=== PATIENT | male | born 1940 | race Hispanic/Latino ===

== ENCOUNTER 2019-01-12 14:48 | Emergency (ER) | payer SELFPAY ==
[~2019-01-12] VITALS: Ht 172.7 cm; Wt 70.0 kg
[~2019-01-12 14:48] MED LIST: AMLODIPINE5 MG PO; ASPIRIN325 MG PO; CYCLOBENZAPR5 MG PO; ENALAPRIL MALEAT5 MG PO; GLUCOPHAGE500 MG PO; LOPRESSOR 550 MG/TAB PO; LOVASTATIN10 M1 PO; NAPROSYN500 MG PO; NORVASC2.5 MG PO
[2019-01-12 15:03] LABS: GFR 59 ML/MIN (>=60 (CALC)); GFR FOR AFR.AMER. > 60 ML/MIN (>=60 (CALC))
[2019-01-12 15:10] LABS: HEMATOCRIT 45.6 % (39.0-50.0); HEMOGLOBIN 14.8 g/dl (14.0-18.0); IMMATURE GRANULOCYTES 0.2 % (0.0-5.0); MEAN CELL VOLUME 90.5 fL CALC (80.0-100.0); MEAN CORPUSCULAR HGB 29.4 pG CALC (26.0-32.0); MEAN CORPUSCULAR HGB CONC 32.5 g/L CALC (32.0-36.0); NEUT# 5.23 thou/uL (1.82-7.42); RED BLOOD COUNT 5.04 mill/uL (4.70-6.10); RED CELL DISTRI WIDTH 13.9 % (11.5-15.5)
[2019-01-12 15:28] LABS: ALBUMIN 4.9 g/dL (3.2-5.0); ALKALINE PHOSPHATASE 107 u/l (38-126); ANION GAP 19 (6-22 (CALC)); BILIRUBIN, TOTAL 0.7 mg/dL (0.0-1.4); BUN 15 mg/dL (8-23); BUN/CREATININE RATIO 14 (12-20 (CALC)); CARBON DIOXIDE 24 mmol/l (22-30); CHLORIDE 105 mmol/l (95-108); CREATININE 1.1 mg/dL (0.7-1.3); GFR > 60 ML/MIN (>=60 (CALC)); GFR FOR AFR.AMER. > 60 ML/MIN (>=60 (CALC)); SGOT/AST 20 u/l (19-48); SODIUM 144 mmol/l (137-146); TOTAL PROTEIN 8.1 g/dL (6.3-8.2)
[2019-01-12 15:32] LABS: POTASSIUM 3.9 mmol/l (3.5-5.1)
[2019-01-12 17:02] VITALS: BP 160/68
== END 2019-01-12 17:01 | disposition left against medical advice (07) | DRG 66 ==
LOC: ED 14:48
PROVIDERS: Family Medicine
DX: I63.9 Cerebral infarction, unspecified (principal); R47.81 Slurred speech; R41.82 Altered mental status, unspecified; I65.22 Occlusion and stenosis of left carotid artery; R29.703 NIHSS score 3; I69.393 Ataxia following cerebral infarction; R94.31 Abnormal electrocardiogram [ECG] [EKG]; Z91.19 Patient's noncompliance with other medical treatment and regimen; F17.200 Nicotine dependence, unspecified, uncomplicated
CPT/HCPCS: Q9967

== ENCOUNTER 2019-01-30 16:05 | Emergency (ER) | payer SELFPAY ==
[~2019-01-30] VITALS: Ht 172.7 cm; Wt 81.0 kg
[2019-01-30 18:05] LABS: URINE BILIRUBIN - DIPSTICK NEGATIVE (NEGATIVE); URINE BLOOD DIPSTICK TRACE-INTACT (NEGATIVE); URINE COLOR YELLOW; URINE GLUCOSE - DIPSTICK 500 mg/dL (NEGATIVE); URINE KETONE TRACE mg/dL (NEGATIVE); URINE LEUK ESTERASE NEGATIVE (NEGATIVE); URINE NITRITE - DIPSTICK NEGATIVE (Negative); URINE PROTEIN - DIPSTICK 30 mg/dL (NEG-TRACE); URINE SPECIFIC GRAVITY >=1.030
[2019-01-30 18:19] LABS: URINE MUCUS MODERATE hpf (NONE-FEW); URINE SQUAMOUS EPITHELIAL CELL FEW EPI/hpf (0-FEW)
[2019-01-30] MEDS ORDERED: KEFLEX500 M1 PO (19:08)
[2019-01-30] MEDS ORDERED: TAMSULOSIN0.4 MG PO (19:08)
[2019-01-30 20:33] VITALS: BP 148/59
== END 2019-01-30 20:33 | disposition home or self-care (01) | DRG 690 ==
LOC: ED 16:05
DX: N30.90 Cystitis, unspecified without hematuria (principal); E11.9 Type 2 diabetes mellitus without complications; I10 Essential (primary) hypertension; F17.210 Nicotine dependence, cigarettes, uncomplicated

== ENCOUNTER 2019-08-01 17:52 | Emergency (ER) | payer SELFPAY ==
[~2019-08-01] VITALS: Ht 172.7 cm; Wt 68.0 kg
[~2019-08-01 17:52] MED LIST changes: +KEFLEX500 M1 PO; +TAMSULOSIN0.4 MG PO
[2019-08-01 18:44] LABS: IMMATURE GRANULOCYTES 0.1 % (0.0-5.0); MEAN CELL VOLUME 92.2 fL CALC (80.0-100.0); MEAN CORPUSCULAR HGB 29.8 pG CALC (26.0-32.0); MEAN CORPUSCULAR HGB CONC 32.3 g/L CALC (32.0-36.0); NEUT# 3.84 thou/uL (1.82-7.42); RED BLOOD COUNT 4.23 mill/uL (4.70-6.10); RED CELL DISTRI WIDTH 13.9 % (11.5-15.5)
[2019-08-01 18:48] LABS: HEMOGLOBIN 12.6 g/dl (14.0-18.0)
[2019-08-01 18:58] LABS: ALBUMIN 4.2 g/dL (3.2-5.0); ALKALINE PHOSPHATASE 80 u/l (38-126); BUN 17 mg/dL (8-23); BUN/CREATININE RATIO 20 (12-20 (CALC)); CHLORIDE 104 mmol/l (95-108); CREATININE 0.9 mg/dL (0.7-1.3); GFR > 60 ML/MIN (>=60 (CALC)); GFR FOR AFR.AMER. > 60 ML/MIN (>=60 (CALC)); SGOT/AST 19 u/l (19-48); SODIUM 142 mmol/l (137-146); TOTAL PROTEIN 7.1 g/dL (6.3-8.2)
[2019-08-01 19:01] LABS: ANION GAP 13 (6-22 (CALC)); BILIRUBIN, TOTAL 0.4 mg/dL (0.0-1.4); CARBON DIOXIDE 29 mmol/l (22-30)
[2019-08-01 19:13] LABS: URINE BLOOD DIPSTICK NEGATIVE (NEGATIVE); URINE COLOR YELLOW; URINE GLUCOSE - DIPSTICK NEGATIVE (NEGATIVE); URINE KETONE NEGATIVE (NEGATIVE); URINE LEUK ESTERASE NEGATIVE (NEGATIVE); URINE NITRITE - DIPSTICK NEGATIVE (Negative); URINE PH 5.5 (4.5-8.0); URINE PROTEIN - DIPSTICK NEGATIVE (NEG-TRACE); URINE SPECIFIC GRAVITY >=1.030; URINE UROBILINOGEN - DIPSTICK 0.2 E.U./dL (0.2)
[2019-08-01 19:14] LABS: URINE BILIRUBIN - DIPSTICK NEGATIVE (NEGATIVE)
[2019-08-01 19:29] LABS: TSH, 3RD GENERATION 1.19 uIU/mL (0.47 - 4.68)
[2019-08-01 20:08] VITALS: BP 157/52
== END 2019-08-01 20:25 | disposition home or self-care (01) | DRG 948 ==
LOC: ED 17:52
PROVIDERS: Family Medicine
DX: R53.1 Weakness (principal); I10 Essential (primary) hypertension; E11.9 Type 2 diabetes mellitus without complications; Z91.14 Patient's other noncompliance with medication regimen; Z79.84 Long term (current) use of oral hypoglycemic drugs; Z60.2 Problems related to living alone

== ENCOUNTER 2020-07-12 16:10 | Inpatient (IN) | payer MEDICARE ==
[~2020-07-12] VITALS: Ht 172.7 cm; Wt 52.8 kg
--- NOTE | 2020-07-12 16:10 | NUR ---
PATIENT DIRECTLY TO ROOM FOR BEDSIDE TRIAGE.
[2020-07-12 17:00] LABS: HEMATOCRIT 36.2 % (39.0-50.0); HEMOGLOBIN 11.4 g/dl (14.0-18.0); IMMATURE GRANULOCYTES 0.1 % (0.0-5.0); MEAN CORPUSCULAR HGB 30.2 pG CALC (26.0-32.0); MEAN CORPUSCULAR HGB CONC 31.5 g/dL CAL (32.0-36.0); NEUT# 4.8 thou/uL (1.82-7.42); RED BLOOD COUNT 3.77 mill/uL (4.70-6.10); RED CELL DISTRI WIDTH 14.2 % (11.5-15.5)
--- NOTE | 2020-07-12 17:08 | NUR ---
PT UNABLE TO VERIFY ANY INFORMATION ABOUT MEDICATIONS , FRIEND THAT DROPPED HIM OFF BEFORE SHE LEFT STATED THAT IF HE IS ON ANY MEDICATIONS HE HASNT BEEN TAKING THEM FOR THE TWO MONTHS THAT SHE HAS BEEN TAKING CARE OF HIM.
[2020-07-12 17:19] LABS: ALBUMIN 3.4 g/dL (3.2-5.0); ALKALINE PHOSPHATASE 93 u/l (38-126); BILIRUBIN, TOTAL 0.4 mg/dL (0.0-1.4); BUN 23 mg/dL (8-23); BUN/CREATININE RATIO 26 (12-20 (CALC)); CHLORIDE 102 mmol/l (95-108); CREATININE 0.9 mg/dL (0.7-1.3); ETHYL ALCOHOL 0 mg/dl (0-30); GFR > 60 ML/MIN (>=60 (CALC)); GFR FOR AFR.AMER. > 60 ML/MIN (>=60 (CALC)); SGOT/AST 32 u/l (19-48); SODIUM 143 mmol/l (137-146); TOTAL PROTEIN 6.3 g/dL (6.3-8.2)
[2020-07-12 17:23] LABS: ANION GAP 7 (6-22 (CALC)); CARBON DIOXIDE 37 mmol/l (22-30); INTERNATIONAL NORMALIZED RATIO 1.1 RATIO (0.7-1.3); POTASSIUM 2.5 mmol/l (3.5-5.1); PROTHROMBIN TIME 10.7 SECONDS (9.0-12.5)
--- NOTE | 2020-07-12 17:59 | NUR ---
PT RESTING QUIETLY ON STRETCHER, EYES CLOSED, WARM BLANKET GIVEN, PT DOES NOT APPEAR TO BE IN ANY DISTRESS AT THIS TIME. HEART RATE REMAINS IN THE MID 40'S SINUS PAZ.
--- NOTE | 2020-07-12 18:55 | NUR ---
RECEIVED HAND OFF REPORT FROM SIOMARA
--- NOTE | 2020-07-12 19:04 | NUR ---
PATIENT AWAKE AND ALERT, ORIENTED X1, NO C/O PAIN, NO S/S OF DISTRESS NOTED, RESPIRATIONS EVEN ANDUNLBORED ON ROOM AIR, AWAITING INPATIENT BED ASSIGNMENT.
[2020-07-12 19:10] LABS: URINE BLOOD DIPSTICK MODERATE (NEGATIVE); URINE COLOR YELLOW; URINE GLUCOSE - DIPSTICK NEGATIVE (NEGATIVE); URINE KETONE NEGATIVE (NEGATIVE); URINE LEUK ESTERASE NEGATIVE (NEGATIVE); URINE NITRITE - DIPSTICK NEGATIVE (Negative); URINE PH 5.5 (4.5-8.0); URINE PROTEIN - DIPSTICK TRACE mg/dL (NEG-TRACE); URINE SPECIFIC GRAVITY 1.025; URINE UROBILINOGEN - DIPSTICK 0.2 E.U./dL (0.2)
[2020-07-12 19:13] LABS: URINE BACTERIA MODERATE hpf; URINE BILIRUBIN - DIPSTICK NEGATIVE (NEGATIVE); URINE SQUAMOUS EPITHELIAL CELL FEW EPI/hpf (0-FEW)
--- NOTE | 2020-07-12 19:34 | NUR ---
REPORT GIVEN TO FLOOR
--- NOTE | 2020-07-12 20:09 | NUR ---
PATIENT RESTING QUIETLY, AWAITING TRANSFER TO INPATIENT TREATMENT ROOM FOR STABLE BLOOD PRESSURE.
--- NOTE | 2020-07-12 21:04 | NUR ---
RESTING QUIETLY, NO C/O PAIN OR DISCOMFORT, NO S/S OF DISTRESS NOTED, RESPIRATIONS EVEN AND UNLABORED, AWAITING TRANSFER TO INPATIENT TREATMENT ROOM ONCE BLOOD PRESSURE IS DECREASED.
--- NOTE | 2020-07-12 23:26 | NUR ---
PT ARRIVED TO FLOOR VIA STRETCHER ACCOMPAINED BY ER STAFF. ALERT AND ORIENTED X3 PT UNAWARE OF WHY HE IS IN HOSPITAL. PT TRANSFERED FROM STRETCHER TO BED BY STAFF. PT SPEAKS BULGARIAN WITH MINIMAL LATVIAN. ASSESSMENT TRANSLATED BY VANESSA CARRILLO. LEFT SIDED WEAKNESS NOTED, HX OF CVA. MAJOR VESSEL DISTENTION NOTED TO NECK BILATERALLY. PT DENIES LIVING WITH FRIENDS WHO DROPPED HIM OFF. MULTIPLE WOUNDS NOTED AND DOCUMENTED AT THIS TIME. CERAMIC DESIGNER IN PLACE. IV SITE APPEARS HEALTHY. PT ORIENTED TO ROOM AND CALL LIGHT SYSTEM. DISCUSSED POC. PT REQUEST FOOD, WILL PROVIDED. CALL LIGHT WITHIN REACH. WILL CONTINUE TO MONITOR.
[2020-07-12 23:30] VITALS: BP 178/88
--- NOTE | 2020-07-12 23:32 | NUR ---
PATIENT TRANSPORTED TO INPATIENT TREATMENT ROOM 271
[2020-07-13 01:38] VITALS: BP 158/58
--- NOTE | 2020-07-13 03:30 | NUR ---
PT INCONTINENT OF BOWEL AND BLADDER. COMPLETE BED BATH AND LINEN CHANGE PROVIDED. PT TOLERATED WELL. BIOLOGICAL CHEMIST REPLACED. IV SITE APPEARS HEALTHY. REPOSITIONED FOR COMFORT. CALL LIGHT WITHIN REACH. BED ALARM FOR SAFETY. WILL CONTINUE TO MONITOR.
[2020-07-13 04:26] VITALS: BP 169/52
[2020-07-13 05:16] LABS: HEMATOCRIT 35.4 % (39.0-50.0); HEMOGLOBIN 11.3 g/dl (14.0-18.0); IMMATURE GRANULOCYTES 0.5 % (0.0-5.0); MEAN CELL VOLUME 95.4 fL CALC (80.0-100.0); MEAN CORPUSCULAR HGB 30.5 pG CALC (26.0-32.0); MEAN CORPUSCULAR HGB CONC 31.9 g/dL CAL (32.0-36.0); NEUT# 6.05 thou/uL (1.82-7.42); RED BLOOD COUNT 3.71 mill/uL (4.70-6.10); RED CELL DISTRI WIDTH 14.2 % (11.5-15.5)
[2020-07-13 05:38] LABS: ANION GAP 8 (6-22 (CALC)); BUN 18 mg/dL (8-23); BUN/CREATININE RATIO 26 (12-20 (CALC)); CARBON DIOXIDE 35 mmol/l (22-30); CHLORIDE 100 mmol/l (95-108); CREATININE 0.7 mg/dL (0.7-1.3); GFR > 60 ML/MIN (>=60 (CALC)); GFR FOR AFR.AMER. > 60 ML/MIN (>=60 (CALC)); POTASSIUM 2.9 mmol/l (3.5-5.1); SODIUM 139 mmol/l (137-146)
--- NOTE | 2020-07-13 06:09 | NUR ---
BP REMAINS ELEVATED. MANUAL 188/74. RN ON SHIFT TO ADMINISTER PRN APRESOLINE.
--- NOTE | 2020-07-13 07:39 | NUR ---
PT note Patient is screened for rehab intervention and it is felt he would benefit from PT/OT and ST interventions if medical agrees
[2020-07-13 07:41] VITALS: BP 144/53
--- NOTE | 2020-07-13 07:41 | NUR ---
PT LAYING IN BED. A&O TO SELF. PT STATES HE IS AT "HOME" AND CURRENT TIME IS DECEMBER 2011". REORIENTED PT TO PLACE AND TIME. MULTIPLE WOUNDS SEEN WITH DIFFERENT HEALING STAGES, SEE CHART FOR PHOTOS. PT DENIES ANY PAIN AT THIS TIME. STATES THAT HE LIVES ALONE BUT SOMEONE HELPS FEED HIM. LT SIDED WEAKNESS NOTICED. PT ABLE TO FOLLOW COMMANDS. WHEEZING HEARD UPON AUSCULTATION. NO OTHER NEEDS AT THIS TIME. BED ALARM PLACED FOR SAFETY PRECAUTIONS. DISCUSSED POC REINFORCEMENT NEEDED. CALL LIGHT IN REACH. CONTINUE TO MONITOR.
--- NOTE | 2020-07-13 08:24 | NUR ---
DR ALEXANDER AND ARA AT BEDSIDE DISCUSSING POC
--- NOTE | 2020-07-13 09:35 | NUR ---
PHYSICAL THERAPY AT BEDSIDE COMPLETING BEDSIDE EVAL
[2020-07-13 11:07] VITALS: BP 144/57
--- NOTE | 2020-07-13 11:17 | NUR ---
Called patient phone number, and friend answered. Per friend, patient has not been taking any medication sice October 2018. Friend does not know if patient has any medication allergies.
--- NOTE | 2020-07-13 11:26 | NUR ---
VERIFIED COMPATIBILITY WITH POTASSIUM CHLORIDE AND ROCEPHIN PER SRINI BOTH ARE Y SITE COMPATIBLE
--- NOTE | 2020-07-13 11:53 | NUR ---
PT TAKEN TO CT VIA STRETCHER BY MELISA CARRILLO
--- NOTE | 2020-07-13 14:10 | NUR ---
DOUBLE LUMEN PICC TO URIEL. BOTH LUMENS FLUSHED AND MINOO BACK BLOOD WITH EASE. PICC PROTOCOL SENT TO PHARMACY. NS @ 75 INITIATED. CALL LIGHT IN REACH. CONTINUE TO MONITOR.
[2020-07-13 15:17] VITALS: BP 156/54
--- NOTE | 2020-07-13 16:30 | NUR ---
ENGRAVING PLATE MAKER JENNIFER AT BEDSIDE
--- NOTE | 2020-07-13 18:26 | NUR ---
ZINC OXIDE APPLIED TO BUTTOCKS, SKIN PREP TO WOUNDS APPLIED PER DR MONROY'S ORDERS. PT TOLERATED WELL. PER SHABNAM IN THE ED, PT RAN A 6 SECOND VTACH DURING OUR CHANGES IN POSITION FOR THE APPLICATION OF CREAM. STIPS TO BE REC AND MD TO BE NOTIFIED
--- NOTE | 2020-07-13 18:33 | NUR ---
DR ROMERO NOTIFIED OF PTS 6 EPISODE OF VTACH. PT CURRENTLY ASYMPTOMATIC. WILL CONTINUE TO MONITOR.
[2020-07-13 19:00] VITALS: BP 165/66
--- NOTE | 2020-07-13 19:26 | NUR ---
PT MEDICATED FOR ELEVATED BP. NO S/O DISTRESS AT THIS TIME. CALL LIGHT AT BEDSIDE.
--- NOTE | 2020-07-13 20:34 | NUR ---
PT MEDICATED ORDERS PROVIDE AND PROVIDED W/SNACK. ASSISTED PT EATING PUDDING AND COFFEE PER REQUEST. PT ALSO ABLE TO SWALLOW PILL W/OUT DIFFICULTY, BUT WOULD NOT FEED HIMSELF. BARBER SHOP MANAGER ASSISTED.
--- NOTE | 2020-07-13 21:20 | NUR ---
PT CALLING OUT, ASKING FOR REPOSITIONING IN BED. PT CLEANED OF URINE INCONTINENCE AND REPOSITIONED IN BED FOR COMFORT. HEEL PROTECTORS REPLACED. DRINK PROVIDED AT THIS TIME. PT DRINKING COFFEE PROVIDED WITH ASSISTANCE DRINKING.
--- NOTE | 2020-07-13 21:42 | NUR ---
PT CALLING OUT, NOT USING CALL LIGHT. PT ASKING FOR FOOD. ASSISTED PT EATING CRACKERS, PT IS ABLE TO USE RIGHT HAND LIMITED TO HOLD AND EAT CRACKERS, SEEMS TO HAVE DIFFICULTY GRABBING AND HOLDING CUPS/ASSISTANCE PROVIDED. BED ALARM IS ON.
--- NOTE | 2020-07-13 23:29 | NUR ---
METAL FABRICATION SUPERVISOR TALKED WITH PT OVER THE PHONE DUE TO PT YELLING OUT. PT ASKED TO HAVE HIS BED CHANGED. BEDDING IS CLEAN AND DRY, PREVIOUSLY CHANGED NOT LONG AGO. PT HAS BRIEF ON AND IS SLIGHTLY WET WITH YELLOW URINE. PT CLEANED OF INCONTINENT URINE AND CONDOM CATH PLACED. WILL CONTINUE TO MONITOR FOR NEEDS.
--- NOTE | 2020-07-13 23:56 | NUR ---
PT STILL YELLING OUT, PT MEDICATED FOR ANXIOUSNESS/AGITATION AT THIS TIME AND ASSISTED DRINKING ENSURE AND EATING SNACK.
[2020-07-14] VITALS (8 sets, daily range): BP systolic 155–175; BP diastolic 60–72
--- NOTE | 2020-07-14 00:19 | NUR ---
PT YELLING OUT ASKING FOR COFFEE. BED ALARM IS ON AT THIS TIME.
--- NOTE | 2020-07-14 04:15 | NUR ---
Pt cleaned of incontinent urine and stool. condom cath was draining clear yellow urine, but has come off for maria-care. Bedding changed again at this time. Pt medicated for elevated bp and blood drawn for labs. Picc line flushed patent and hep-locked. Ivf running to 2nd lumen of PICC. No s/o distress noted. Bed in lowest position, bed alarm on and call light w/in reach.
[2020-07-14 05:38] LABS: HEMATOCRIT 36.6 % (39.0-50.0); HEMOGLOBIN 11.8 g/dl (14.0-18.0); MEAN CELL VOLUME 95.1 fL CALC (80.0-100.0); MEAN CORPUSCULAR HGB 30.6 pG CALC (26.0-32.0); MEAN CORPUSCULAR HGB CONC 32.2 g/dL CAL (32.0-36.0); RED BLOOD COUNT 3.85 mill/uL (4.70-6.10); RED CELL DISTRI WIDTH 14.2 % (11.5-15.5)
[2020-07-14 06:01] LABS: ANION GAP 10 (6-22 (CALC)); BUN 20 mg/dL (8-23); BUN/CREATININE RATIO 29 (12-20 (CALC)); CARBON DIOXIDE 30 mmol/l (22-30); CHLORIDE 101 mmol/l (95-108); CREATININE 0.7 mg/dL (0.7-1.3); GFR > 60 ML/MIN (>=60 (CALC)); GFR FOR AFR.AMER. > 60 ML/MIN (>=60 (CALC)); MAGNESIUM 1.7 mg/dL (1.6-2.3); SODIUM 137 mmol/l (137-146)
[2020-07-14 06:02] LABS: POTASSIUM 3.8 mmol/l (3.5-5.1)
--- NOTE | 2020-07-14 06:23 | NUR ---
PT ACCU-CHECK OBTAINED. CONDOM-CATH DRAINING TO GRAVITY CLEAR YELLOW URINE. NO S/O DISTRESS NOTED.
--- NOTE | 2020-07-14 08:00 | NUR ---
FEED PT AND PT EAT 100%. PO FLUIDS PROVIDED. ASSESSMENT DONE. PT IS A&O X1. PT DENIES PAIN AT THIS TIME. IVF INFUSING WELL. RU PICC IN PLACE. TELE IN PLACE. SKIN PREP APPLIED TO RIGHT WRIST AND LEFT KNEE PER ORDER. LUNGS SOUND WITH WHEEZES. CONDOM CATH PATENT WITH KENNY URINE. PT DENIES ANY OTHER NEEDS AT THIS TIME. CALL LIGHT IN REACH AND BED ALARM IN PLACE.
--- NOTE | 2020-07-14 08:59 | NUR ---
RACHELLE SPANGLER IN ROOM TO ASSESS PT.
--- NOTE | 2020-07-14 12:00 | NUR ---
CHEMICAL PROCESSING SUPERVISOR IN ROOM TO FEED PT LUNCH. NO S/S OF DSITRESS NOTED . CALL LIGHT IN REACH. BED ALARM IN PLACE.
--- NOTE | 2020-07-14 15:54 | NUR ---
PT INCONTINENT OF YELLOW URINE IN PAD. JOELLEN CARE DONE. PT DENIES ANY OTHER NEEDS AT THIS TIME. CALL LIGHT IN REACH. BED ALARM IN PLACE.
--- NOTE | 2020-07-14 16:48 | NUR ---
MEDICATED PT WITH APRESOLINE IV FOR BP 163/71. NO S/S OF DISTRESS NOTED. BED ALARM IN PLACE.
--- NOTE | 2020-07-14 20:30 | NUR ---
PT BP ELEVATED, PHYSICIAN NOTIFIED AND NEW ORDERS RECEIVED AT THIS TIME.
--- NOTE | 2020-07-14 21:04 | NUR ---
PT MEDICATED ORDERS PROVIDE FOR ELEVATED BP.
--- NOTE | 2020-07-14 23:50 | NUR ---
PT CLEANED OF INCONTINENT URINE AND STOOL. HEEL PROTECTORS PLACED BACK ON, PT KEEPS REMOVING THEM. PT WILL NOT KEEP FEET ELEVATED TO FLOAT. ASSISTED PT DRINK AND PROVIDED SNACK. ASSISTED PT FIND TV SHOW, LIGHTS ARE OFF. CALL LIGHT W/IN REACH AND BED ALARM ON.
[2020-07-15] VITALS: BP 168/76
--- NOTE | 2020-07-15 00:12 | NUR ---
PT MEDICATED FOR ELEVATED BP ORDERS PROVIDE. NO DISTRESS NOTED AT THIS TIME. PT IS RESTING WITH EYES CLOSED.
[2020-07-15 04:00] VITALS: BP 167/77
--- NOTE | 2020-07-15 04:44 | NUR ---
BLOOD DRAWN FOR LABS, V/S ASSESSED AT THIS TIME AND PT CLEANED OF INCONTINENT URINE. PT TOLERATED WELL. PICC TO URIEL PATENT AND HEP LOCKED. IVF RUNNING KVO TO 2ND LUMEN
[2020-07-15 06:01] LABS: ANION GAP 9 (6-22 (CALC)); BUN 21 mg/dL (8-23); BUN/CREATININE RATIO 28 (12-20 (CALC)); CARBON DIOXIDE 31 mmol/l (22-30); CHLORIDE 102 mmol/l (95-108); CREATININE 0.8 mg/dL (0.7-1.3); GFR > 60 ML/MIN (>=60 (CALC)); GFR FOR AFR.AMER. > 60 ML/MIN (>=60 (CALC)); POTASSIUM 4.2 mmol/l (3.5-5.1); SODIUM 136 mmol/l (137-146)
[2020-07-15 07:50] VITALS: BP 144/48
--- NOTE | 2020-07-15 08:02 | NUR ---
SHIFT CHANGE REPORT, AWAKE AND ALERT IN HIGH FOWLERS POSITION, TELE MONITOR IN PLACE, IVF INFUSING, CALL BECERRA IN REACH, WILL CONTINUE TO MONITOR.
[2020-07-15] MEDS ORDERED: ADLT ASA LOW81 MG PO (10:04)
[2020-07-15] MEDS ORDERED: POLYETHYLENE GL17 GM PO (10:04)
[2020-07-15] MEDS ORDERED: LISINOPRIL20 M1 PO (10:04)
[2020-07-15] MEDS ORDERED: ATORVASTATIN CA40 MG PO (10:04)
[2020-07-15 10:40] VITALS: BP 143/65
[2020-07-15] MEDS ORDERED: KEFLEX500 M1 PO (11:02)
--- NOTE | 2020-07-15 12:20 | NUR ---
IN BED IN HIGH FOWLERS POSITION, HEALTHY APPETITE, INFORMED OF D/C PLANS TO REHAB ADN STATED UNDERSTANDING. FRIEND SHASHI NOTIFIED OF PLANS AND EXPRESS GRATITUDE FOR PLAN STATING HE HAS NOT FAMILY AND SHE WOULD GO AND ASSIST HIM FROM TIME TO TIME BUT SHE IS NOT RELATED TO HIM.
--- NOTE | 2020-07-15 14:04 | NUR ---
REPORT GIVEN TO JESSICA, STAFF HERE TO RECEIVE PT AT THIS TIME, TRANSFERRED TO W/C WITH MAX ASSIST OR 4 THEN TRANSPORTED TO REHAB BY REHAB STAFF
--- NOTE | 2020-07-15 14:08 | NUR ---
Discharge instructions given. Patient verbalizes understanding of same. Discharged in stable condition via Wheelchair to [facility] with *Other. All belongings sent with pt.
== END 2020-07-15 14:03 | DRG 640 ==
LOC: ED 16:10 → ED-I 17:09 → ED 17:09 → ED-I 18:16 → ED 18:23 → MS2 18:24
PROVIDERS: Nurse Practitioner; Student in an Organized Health Care Education/Training Program; ADMIT Internal Medicine; ATTEND Internal Medicine
PROC: 3E02340 Introduction of Influenza Vaccine into Muscle, Percutaneous Approach (ICD-10-PCS; principal; 2020-07-13)
PROC: 3E0234Z Introduction of Serum, Toxoid and Vaccine into Muscle, Percutaneous Approach (ICD-10-PCS; 2020-07-13)
PROC: 02HV33Z Insertion of Infusion Device into Superior Vena Cava, Percutaneous Approach (ICD-10-PCS; 2020-07-13)
PROC: B518ZZA Fluoroscopy of Superior Vena Cava, Guidance (ICD-10-PCS; 2020-07-13)
DX: E87.6 Hypokalemia (principal); E43 Unspecified severe protein-calorie malnutrition; I69.954 Hemiplegia and hemiparesis following unspecified cerebrovascular disease affecting left non-dominant side; Z68.1 Body mass index [BMI] 19.9 or less, adult; R64 Cachexia; N39.0 Urinary tract infection, site not specified; L97.829 Non-pressure chronic ulcer of other part of left lower leg with unspecified severity; E86.0 Dehydration; E11.9 Type 2 diabetes mellitus without complications; I10 Essential (primary) hypertension; I25.10 Atherosclerotic heart disease of native coronary artery without angina pectoris; E78.5 Hyperlipidemia, unspecified; R62.7 Adult failure to thrive; R32 Unspecified urinary incontinence; R15.9 Full incontinence of feces; M24.59 Contracture, other specified joint; I70.245 Atherosclerosis of native arteries of left leg with ulceration of other part of foot; I70.248 Atherosclerosis of native arteries of left leg with ulceration of other part of lower leg; L97.529 Non-pressure chronic ulcer of other part of left foot with unspecified severity; L97.519 Non-pressure chronic ulcer of other part of right foot with unspecified severity; L98.499 Non-pressure chronic ulcer of skin of other sites with unspecified severity; S31.829A Unspecified open wound of left buttock, initial encounter; S31.819A Unspecified open wound of right buttock, initial encounter; B96.20 Unspecified Escherichia coli [E. coli] as the cause of diseases classified elsewhere; X58.XXXA Exposure to other specified factors, initial encounter; Z23 Encounter for immunization; Z91.81 History of falling; Z79.84 Long term (current) use of oral hypoglycemic drugs; Z20.828 Contact with and (suspected) exposure to other viral communicable diseases
CPT/HCPCS: J1650

== ENCOUNTER 2021-06-27 23:52 | Observation (INO) | payer MEDICARE ==
[~2021-06-27] VITALS: Ht 172.7 cm; Wt 58.0 kg
[~2021-06-27 23:52] MED LIST changes: +ADLT ASA LOW81 MG PO; +ATORVASTATIN CA40 MG PO; +LISINOPRIL20 M1 PO; +POLYETHYLENE GL17 GM PO
--- NOTE | 2021-06-27 23:58 | NUR ---
PT MOVED TO ROOM 14 BY EMS, TRANSFERRED TO [facility] BY RN AND EMS. MD AT BEDSIDE. TRIAGE DONE.
--- NOTE | 2021-06-28 00:09 | NUR ---
Reassessment of patient completed. No distress noted.
[2021-06-28 00:33] LABS: HEMATOCRIT 29.4 % (39.0-50.0); IMMATURE GRANULOCYTES 0.2 % (0.0-5.0); MEAN CELL VOLUME 93.9 fL CALC (80.0-100.0); MEAN CORPUSCULAR HGB 28.8 pG CALC (26.0-32.0); MEAN CORPUSCULAR HGB CONC 30.6 g/dL CAL (32.0-36.0); NEUT# 12.57 thou/uL (1.82-7.42); RED BLOOD COUNT 3.13 mill/uL (4.70-6.10); RED CELL DISTRI WIDTH 13.9 % (11.5-15.5)
[2021-06-28 00:43] LABS: ALKALINE PHOSPHATASE 91 u/l (38-126); AMYLASE 101 u/l (30-110); ANION GAP 9 (6-22 (CALC)); BILIRUBIN, TOTAL 0.3 mg/dL (0.0-1.4); BUN 33 mg/dL (8-23); BUN/CREATININE RATIO 55 (12-20 (CALC)); CARBON DIOXIDE 27 mmol/l (22-30); CHLORIDE 103 mmol/l (95-108); CREATININE 0.6 mg/dL (0.7-1.3); GFR > 60 ML/MIN (>=60 (CALC)); GFR FOR AFR.AMER. > 60 ML/MIN (>=60 (CALC)); LIPASE 126 u/l (23-300); POTASSIUM 4.3 mmol/l (3.5-5.1); SGOT/AST 25 u/l (19-48); SODIUM 135 mmol/l (137-146); TOTAL PROTEIN 6.2 g/dL (6.3-8.2)
[2021-06-28 00:48] LABS: ACT PARTIAL THROMBO TIME 30.6 SECONDS (20.0-32.5); INTERNATIONAL NORMALIZED RATIO 1.1 RATIO (0.7-1.3)
--- NOTE | 2021-06-28 01:54 | NUR ---
Reassessment of patient completed. No distress noted.
--- NOTE | 2021-06-28 02:21 | NUR ---
Reassessment of patient completed. No distress noted.
--- NOTE | 2021-06-28 03:55 | NUR ---
PT CHECK. NO DISTRESS NOTED. PT DID REMOVE HIS IV CATHETER. IV WILL BE REPLACED.
--- NOTE | 2021-06-28 04:30 | NUR ---
BEDDING, PAD, BRIEF, AND GOWN CHANGE. WARM BLANKET GIVEN TO PATIENT.
--- NOTE | 2021-06-28 05:10 | NUR ---
ATTEMPTED #1 TO CALL REP0RT TO FLOOR. JAMIL BE, WILL RETURN CALL WHEN SHE IS AVAILABLE.
--- NOTE | 2021-06-28 05:33 | NUR ---
RECEIVED REPORT FROM STANLEY NEGRON.
--- NOTE | 2021-06-28 05:33 | NUR ---
Admission Note Report Given to: JAMIL BE Transported by: Wheelchair X Stretcher Transported with: X Nurse Transporter X Patent IV O2 X Asphalt Roller Operator Location: ICU X MS2
[2021-06-28 06:12] LABS: HEMATOCRIT 28.3 % (39.0-50.0); HEMOGLOBIN 8.8 g/dl (14.0-18.0); IMMATURE GRANULOCYTES 0.2 % (0.0-5.0); MEAN CELL VOLUME 92.5 fL CALC (80.0-100.0); MEAN CORPUSCULAR HGB 28.8 pG CALC (26.0-32.0); MEAN CORPUSCULAR HGB CONC 31.1 g/dL CAL (32.0-36.0); NEUT# 11.3 thou/uL (1.82-7.42); RED BLOOD COUNT 3.06 mill/uL (4.70-6.10); RED CELL DISTRI WIDTH 13.9 % (11.5-15.5)
--- NOTE | 2021-06-28 06:22 | NUR ---
RECEIVED PATIENT TO THE FLOOR AT 0550 IN STABLE CONDITION FROM THE ED VIA STRETCHER, ESCORTED BY STANLEY NEGRON AND SADIQ PEREZ. PATIENT IS ALERT TO SELF. SPEECH GARBLED. MALAWIAN SPEAKING. HR REG. RESPIRATIONS EVEN AND UNLABORED/SHALLOW. LUNG SOUNDS CLEAR/DIMINISHED. UNABLE TO OBTAIN LAST BM. IV PROTONIX INFUSING FROM THE ED. NS @ 125 ORDERED FOR CONTINUOUS INFUSION. PATIENT SKIN INTACT, HOWEVER MULTIPLE SCARS NOTED. B/L FEET APPEARS TO HAVE FUNGUS TO TOE NAILS. NAILS ARE THICK. FEW SCABS TO TOES WELL. ADMISSION PAPERWORK CHARTED. ASSESSMENT COMPLETED/CHARTED. 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 FALL PRECAUTIONS IN PLACE. BED IN LOW POSITION. CALL LIGHT WITHIN REACH. BED ALARM ACTIVATED. СВЕТЛАНА CRACKERS AND WATER GIVEN TO PATIENT. REPORTS BEING HUNGARY. PATIENT WILL NEED ASSISTANCE TO FEED.
[2021-06-28 06:30] VITALS: BP 150/67
[2021-06-28 08:45] VITALS: BP 128/57; BP 150/67
--- NOTE | 2021-06-28 08:45 | NUR ---
BEDSIDE REPORT RECEIVED AT CHANGE OF SHIFT. PT LYING IN BED AWAKE AT THIS TIME. PT ALERT TO SELF, ASSESSMENT PERFORMED. UPON BEDSIDE REPORT PT WAS THOUGHT TO BE AUSTRIAN SPEAKING ONLY, HE DOES SPEAK SOME PORTUGUESE ALTHOUGH SPEAK IS STILL SLIGHTLY GARBLED. NO COMPLAINTS OR MEDICATIONS DUE AT THIS TIME. WILL CONTINUE TO MONITOR.
[2021-06-28] MEDS ORDERED: ATORVASTATIN CA20 MG PO (10:49)
[2021-06-28] MEDS ORDERED: NORVASC5 M1 PO (10:49)
[2021-06-28] MEDS ORDERED: ASPIRIN81 MG PO (10:49)
[2021-06-28] MEDS ORDERED: MULTI VIT PO (10:50)
[2021-06-28] MEDS ORDERED: PROTONIX40 M2 PO (10:50)
[2021-06-28] MEDS ORDERED: ACETAMINOPHEN500 M1 PO (10:51)
[2021-06-28] MEDS ORDERED: COLCHICINE0.6 M2 PO (10:52)
[2021-06-28] MEDS ORDERED: BACLOFEN10 MG PO (10:52)
[2021-06-28] MEDS ORDERED: PHENERGAN25 MG PR (11:00)
[2021-06-28] MEDS ORDERED: ONDANSETRON4 MG PO (11:01)
[2021-06-28] MEDS ORDERED: MUPIROCIN2 % TOP (11:01)
[2021-06-28] MEDS ORDERED: SANTYL250 UNIT/G TOP (11:02)
[2021-06-28 14:30] VITALS: BP 144/59
--- NOTE | 2021-06-28 17:23 | NUR ---
PT LYING IN BED WATCHING TV NO COMPLAINTS AT THIS TIME. UA SENT TO LAB.
[2021-06-28 18:21] LABS: URINE BILIRUBIN - DIPSTICK NEGATIVE (NEGATIVE); URINE BLOOD DIPSTICK TRACE-INTACT (NEGATIVE); URINE COLOR YELLOW; URINE GLUCOSE - DIPSTICK NEGATIVE (NEGATIVE); URINE KETONE NEGATIVE (NEGATIVE); URINE LEUK ESTERASE TRACE (NEGATIVE); URINE NITRITE - DIPSTICK POSITIVE (Negative); URINE PROTEIN - DIPSTICK NEGATIVE (NEG-TRACE); URINE UROBILINOGEN - DIPSTICK 0.2 E.U./dL (0.2)
[2021-06-28 18:29] LABS: URINE BACTERIA MANY hpf; URINE RBC 0-2 RBC/hpf (0-5)
[2021-06-28 19:30] VITALS: BP 136/72
--- NOTE | 2021-06-28 20:20 | NUR ---
CALLED TO ROOM BY SPECIAL EFFECTS TECHNICIAN'S, NOTED PT HAS CONTRACTURES, DIFFICULT TO PROVIDE PERICARE, PT NOT COOPERATING, NOTIFIED MD AND HARINI ORDER OBTAINED, PT AGREES WITH PLAN, BUTCHER ALL ROUND DISCUSSED WITH PT IN [place], CNAS REMAINED AT BEDSIDE TO COMPLETE PERICARE, CALL LIGHT IN REACH,CONTINUE TO MONITOR.
--- NOTE | 2021-06-28 20:45 | NUR ---
PT RESTING IN BED, NO SIGNS OF DISTRESS NOTED, RESP EVEN AND UNLABORED. PT ALERT TO SELF, FROM CARE HOME, CONTRACTURES TO BLE NOTED, LOTS OF HEALED WOUNDS TO BLE, DISCUSSED SCHULER CATHETER, PT AGREES, ASSISTED BY PHYS THER, #16F SCHULER INSERTED WITHOUT DIFFICULTIES USING STERILE PROCEDURE, PT TOLERATED WELL. NOTED CLOUDY YELLOW URINE, STAT LOCK PLACED TO L INNER THIGH. ASSESSMENT COMPLETED, CALL LIGHT IN REACH,CONTINUE TO MONITOR.
--- NOTE | 2021-06-29 | NUR ---
PT RESTING IN BED WITH EYES CLOSED, NO SIGNS OF DISTRESS NOTED, RESP EVEN AND UNLABORED. CALL LIGHT IN REACH,CONTINUE TO MONITOR.
[2021-06-29 04:00] VITALS: BP 146/63
--- NOTE | 2021-06-29 04:00 | NUR ---
PT RESTING IN BED WITH EYES CLOSED, NO SIGNS OF DISTRESS NOTED, RESP EVEN AND UNLABORED.CALL LIGHT IN REACH,CONTINUE TO MONITOR.
[2021-06-29 05:31] LABS: HEMOGLOBIN 8.3 g/dl (14.0-18.0); MEAN CELL VOLUME 93.8 fL CALC (80.0-100.0); MEAN CORPUSCULAR HGB 28.8 pG CALC (26.0-32.0); MEAN CORPUSCULAR HGB CONC 30.7 g/dL CAL (32.0-36.0); RED BLOOD COUNT 2.88 mill/uL (4.70-6.10); RED CELL DISTRI WIDTH 13.9 % (11.5-15.5)
[2021-06-29 05:53] LABS: ANION GAP 9 (6-22 (CALC)); BUN 15 mg/dL (8-23); BUN/CREATININE RATIO 27 (12-20 (CALC)); CARBON DIOXIDE 24 mmol/l (22-30); CHLORIDE 108 mmol/l (95-108); CREATININE 0.6 mg/dL (0.7-1.3); GFR > 60 ML/MIN (>=60 (CALC)); GFR FOR AFR.AMER. > 60 ML/MIN (>=60 (CALC)); MAGNESIUM 1.8 mg/dL (1.6-2.3); POTASSIUM 4.2 mmol/l (3.5-5.1); SODIUM 136 mmol/l (137-146)
[2021-06-29 07:23] VITALS: BP 156/73
--- NOTE | 2021-06-29 07:23 | NUR ---
PT ALERT AND ORIENTED. PT VITALS AND ASSESSMENT COMPLETED. PT HAS CONTRACTURES TO EXTREMITIES. PT IS VERY PLEASANT. PT S1 AND S2 HEARD UPON ASCULTATION. BOWELS ACTIVE IN ALL 4 QUADS. IV PATENT AND HEALTHY. PT SCHULER CATHETER IN PLACE AND DRAINING VIA GRAVITY. SKIN SCARRED BUT INTACT. PEDAL PULSES STRONG. NO PAIN INDICATED. NO OTHER NEEDS AT THIS TIME.
--- NOTE | 2021-06-29 09:47 | NUR ---
PT IN BED. NO DISTRESS NOTED. CALL LIGHT WITHIN REACH.
--- NOTE | 2021-06-29 11:24 | NUR ---
PT IN BED. NO DISTRESS NOTED. CALL LIGHT WITHIN REACH.
[2021-06-29 14:40] VITALS: BP 148/79
--- NOTE | 2021-06-29 15:28 | NUR ---
PT IN BED. NO DISTRESS NOTED. CALL LIGHT WITHIN REACH.
--- NOTE | 2021-06-29 17:00 | NUR ---
CHANGED PT FROM REG BED TO AN AIR MATTRESS. PT TOLERATED WELL. CALL LIGHT WITHIN REACH.
[2021-06-29 17:35] LABS: HEMATOCRIT 27.9 % (39.0-50.0); HEMOGLOBIN 8.7 g/dl (14.0-18.0)
[2021-06-29 19:30] VITALS: BP 155/78
--- NOTE | 2021-06-29 20:28 | NUR ---
PT RESTING IN BED WATCHING TV, NO SIGNS OF DISTRESS NOTED, RESP EVEN AND UNLABORED. PT ON RA, LUNGS CLEAR. PT IS CONTRACTED REPOSITIONED IN BED WITH PILLOWS, PT IS ON AN AIRMATTRESS. PT IS S[place]ORE[place] SPEAKING ALERT AND ORIENTED TO SELF AND PLACE. DISCUSSED POC, PT VERBALIZED UNDERSTANDING. SCHULER PATENT,CLEAR YELLOW URINE DRAINING TO GRAVITY, STAT LOCK IN PLACE. MEDICATED PER MAR, ASSESSMENT COMPLETED. CALL LIGHT IN REACH,CONTINUE TO MONITOR.
--- NOTE | 2021-06-30 00:43 | NUR ---
PT RESTING IN BED WATCHING TV, NO SIGNS OF DISTRESS NOTED, RESP EVEN AND UNLABORED. PT VOICES NO NEEDS OR COMPLAINTS AT THIS TIME, CALL LIGHT IN REACH,CONTINUE TO MONITOR.
--- NOTE | 2021-06-30 03:03 | NUR ---
PT STILL AWAKE WATCHING TV, PT HAS THROWN HIS BLANKETS AND PILLOWS ON THE FLOOR, ATTEMPTED TO COVER PT WITH BLANKETS AND PLACE PILLOW TO BONY PROMINENCES PT REFUSED STATES HE DOES NOT WANT TO BE COVERED. BED ALARM FOR SAFETY, CALL LIGHT IN REACH,CONTINUE TO MONITOR.
[2021-06-30 04:00] VITALS: BP 155/61
[2021-06-30 05:22] LABS: HEMOGLOBIN 8.5 g/dl (14.0-18.0); MEAN CELL VOLUME 92.5 fL CALC (80.0-100.0); MEAN CORPUSCULAR HGB 29.1 pG CALC (26.0-32.0); MEAN CORPUSCULAR HGB CONC 31.5 g/dL CAL (32.0-36.0); RED BLOOD COUNT 2.92 mill/uL (4.70-6.10); RED CELL DISTRI WIDTH 13.7 % (11.5-15.5)
[2021-06-30 07:00] VITALS: BP 170/65
--- NOTE | 2021-06-30 07:00 | NUR ---
PT AWAKE UPON ENTERING ROOM. PT IS ALERT AND ORIENTED. VITALS AND ASSESSMENT COMPLETED. S1 AND S2 HEARD UPON ASCULTATION. BOWELS ACTIVE IN ALL 4 QUADRANTS. SKIN WARM AND DRY. SCARING NOTED THROUGHOUT SKIN. CONTRACTURES ON EXTREMITIES. REPOSITIONED WHILE THERE. IV PATENT AND HEALTHY WELL SCHULER CATHETER DRAINING VIA GRAVITY. NO PAIN INDICATED BY PT. CALL LIGHT WITHIN REACH.
[2021-06-30] MEDS ORDERED: OMNICEF300 MG PO (10:04)
--- NOTE | 2021-06-30 11:38 | NUR ---
PT IN BED. NO DISTRESS NOTED. CALL LIGHT WITHIN REACH.
--- NOTE | 2021-06-30 13:15 | NUR ---
SCHULER CATHETER REMOVED PER ORDERS. PT TOLERATED WELL. CALL LIGHT WITHIN REACH.
--- NOTE | 2021-06-30 13:45 | NUR ---
called [facility] about pt. reseptionist said they will call back to set up a photocopy operator to come to pick pt up. informed them he has contractures and will need a stretcher process description writer was told that this is how they have transported pt before.
--- NOTE | 2021-06-30 14:00 | NUR ---
pt voided after removal of white catheter.
[2021-06-30 16:29] VITALS: BP 140/70
--- NOTE | 2021-06-30 16:50 | NUR ---
Discharge instructions given. Patient verbalizes understanding of same. Discharged in stable condition via Wheelchair to *Other with staff. All belongings sent with pt.
--- NOTE | 2021-06-30 17:10 | NUR ---
[facility]
== END 2021-06-30 16:42 ==
LOC: ED 23:52 → ED-I 06-28 01:25 → ED 06-28 01:43 → ED-I 06-28 01:47 → MS2 06-28 01:47
PROVIDERS: Family Medicine; Internal Medicine; Nurse Practitioner; ADMIT Internal Medicine; ATTEND Internal Medicine
DX: K92.2 Gastrointestinal hemorrhage, unspecified (principal); N39.0 Urinary tract infection, site not specified; I10 Essential (primary) hypertension; E11.9 Type 2 diabetes mellitus without complications; I25.10 Atherosclerotic heart disease of native coronary artery without angina pectoris; E78.5 Hyperlipidemia, unspecified; R41.82 Altered mental status, unspecified; I69.398 Other sequelae of cerebral infarction; M24.50 Contracture, unspecified joint; E43 Unspecified severe protein-calorie malnutrition; Z68.1 Body mass index [BMI] 19.9 or less, adult; Z79.82 Long term (current) use of aspirin; Z79.1 Long term (current) use of non-steroidal anti-inflammatories (NSAID); Z20.822 Contact with and (suspected) exposure to COVID-19
CPT/HCPCS: J1756; S0164